=== PATIENT | male | born 1985 | race Caucasian/White ===

== ENCOUNTER 2022-09-25 13:40 | Emergency (ER) | payer OTHER ==
[2022-09-25 14:34] VITALS: BP 147/69; PULSE 67; RESP 18; TEMP 97.6; BMI 29.5
== END 2022-09-25 18:49 | disposition home or self-care (01) ==
LOC: JERFT 13:40
DX: S02.2XXA Fracture of nasal bones, initial encounter for closed fracture (principal); Y04.0XXA Assault by unarmed brawl or fight, initial encounter
CPT/HCPCS: 70450-TC; 70486-TC; 72125-TC; 99285-25